=== PATIENT | female | born 1945 | race Caucasian/White ===

== ENCOUNTER → 2017-01-03 | Outpatient (CLI) | payer BC ==
[~2017-01-03] MED LIST: ASPEC325 PO; AZEL15GE TOP; BYS10 PO; CALCTAB5 PO; CHOLTAB3 PO; COEN1CAP28 PO; INDA2.5T PO; MULT-506 PO; POTA20TA16 PO; SIMV40TA4 PO; ZOLM1TAB3 PO
--- NOTE | 2017-01-03 11:32 | DIAGNOSTIC IMAGING REPORT ---
KUB CLINICAL HISTORY: NEPHROLITHIASIS nephrocalcinosis COMPARISON STUDY: 11/07/2013 FINDINGS: Bilateral punctate renal nephrocalcinosis. General similarity as compared to the prior study. Multiple pelvic vascular calcifications. Nonobstructive bowel pattern. IMPRESSION: Punctate bilateral nephrocalcinosis. No major change from the prior study. Electronically signed by: Nicola Graff M.D. 01/03/2017 11:31 AM Dictated Date/Time: 01/03/2017 11:30 AM
== END | disposition home or self-care (01) ==
LOC: C.RADBC 11:08
PROVIDERS: ATTEND Internal Medicine
DX: N20.0 Calculus of kidney (principal)

== ENCOUNTER → 2017-04-11 | Outpatient (CLI) | payer BC | END | disposition home or self-care (01) | LOC: C.MAMM 09:15 | PROVIDERS: ATTEND Obstetrics & Gynecology | DX: M85.851 Other specified disorders of bone density and structure, right thigh (principal); M85.852 Other specified disorders of bone density and structure, left thigh; M85.839 Other specified disorders of bone density and structure, unspecified forearm ==

== ENCOUNTER → 2017-05-18 | Outpatient (CLI) | payer BC ==
--- NOTE | 2017-05-18 12:36 | MAMMOGRAPHY REPORT ---
BILATERAL DIGITAL SCREENING MAMMOGRAM WITH CAD: 05/18/2017 CLINICAL HISTORY: Routine screening. TECHNIQUE: Current study was also evaluated with a Computer Aided Detection (CAD) system. Bilateral CC and MLO views were obtained. COMPARISON: Comparison is made to exams dated: 05/16/2016 mammogram, 05/11/2015 mammogram, 05/07/2014 m ammogram, 05/06/2013 mammogram, 05/03/2012 mammogram, and 05/03/2011 mammogram - [facility] [address] [facility]. BREAST COMPOSITION: There are scattered areas of fibroglandular density in both breasts. FINDINGS: No suspicious masses, calcifications, or areas of architectural distortion are noted in ei ther breast. There has been no significant interval change compared to prior exams. IMPRESSION: ACR BI-RADS CATEGORY 1: NEGATIVE There is no mammographic evidence of malignancy. A 1 year screening mammogram is recommended. The pa tient will receive written notification of the results. Approximately 10% of breast cancers are not detected with mammography. A negative mammographic report should not delay biopsy if a clinically suggestive mass is present. Alexa Rojas M.D. ah/:05/18/2017 10:43:16 Cube Cutter: Adrianne Mcintyre RT(R)(M), [facility] letter sent: Normal 1/2 BI-RADS Code: ACR BI-RADS Category 1: Negative
== END | disposition home or self-care (01) ==
LOC: C.MAMM 08:56
PROVIDERS: ATTEND Obstetrics & Gynecology
DX: Z12.31 Encounter for screening mammogram for malignant neoplasm of breast (principal)